=== PATIENT | female | born 1990 | race Caucasian/White ===

== ENCOUNTER 2021-11-12 06:45 | Inpatient (IN) | payer BC ==
[~2021-11-12] VITALS: Ht 165.1 cm; Wt 85.3 kg
[2021-11-12] MEDS ORDERED: ONDANSETRON HCL 4 MG/2 ML VIAL IVP PRN (08:00)
[2021-11-12] MEDS: NALBUPHINE HCL 10 MG/ML AMP IVP PRN ×3 (08:31→18:17)
[2021-11-12] MEDS: LR 1,000 ML IV SCH (08:32)
[2021-11-12] MEDS ORDERED: TERBUTALINE SULFATE 1 MG/ML VIAL SUBCUT ONE (10:45)
[2021-11-12] MEDS ORDERED: OXYTOCIN/0.9 % SODIUM CHLORIDE 1,000 ML IV SCH ×2 (10:45→23:30)
[2021-11-12] MEDS ORDERED: FENT2mCg/mL-ROPIVA0.2%/NS EPID 200 ML EP SCH (11:30)
[2021-11-12] MEDS ORDERED: fentaNYL CITRATE/PF 100 MCG/2 ML AMP ONE (12:55)
[2021-11-12] MEDS ORDERED: ROPIVACAINE HCL/PF 0.2% 200 ML ONE (12:55)
[2021-11-12 13:33] LABS: BASOPHILS # (AUTO) 0.1 K/uL (0.0-0.2); BASOPHILS % (AUTO) 0.8 % (0.0-2.0); EOSINOPHILS % (AUTO) 0.4 % (0.0-4.0); HEMATOCRIT 34.4 % (36-48); HEMOGLOBIN 11.4 g/dL (12.0-16.0); LYMPHOCYTES # (AUTO) 1.3 K/uL (1.0-5.5); LYMPHOCYTES % (AUTO) 14.2 % (20.5-51.5); MEAN CORPUSCULAR HEMOGLOBIN 29 pg (27-31); MEAN CORPUSCULAR HGB CONC 33 % (32-36); MEAN CORPUSCULAR VOLUME 87 fL (79.0-98.0); MONOCYTES # (AUTO) 0.6 K/uL (0.0-1.0); MONOCYTES % (AUTO) 6.5 % (1.7-9.3); NEUTROPHILS # (AUTO) 7.3 K/uL (1.8-7.7); NEUTROPHILS % (AUTO) 78.1 % (40.0-70.0); PLATELET COUNT (AUTO) 151 K/uL (130-430); RED BLOOD CELL COUNT(AUTO) 3.97 MIL/uL (4.2-6.2); RED CELL DISTRIBUTION WIDTH 14.9 % (9.0-15.0); WHITE BLOOD COUNT (AUTO) 9.3 K/uL (4.8-10.8)
[2021-11-12] MEDS ORDERED: LIGHT MINERAL OIL 10 ML VIAL MC ONE (21:13)
[2021-11-12] MEDS ORDERED: LIDOCAINE PF 1% 30ML(POUR BTL) INJ ONE (21:13)
[2021-11-12] MEDS ORDERED: NALOXONE HCL 0.4 MG/ML AMP (NARCAN) ONE (21:13)
[2021-11-12] MEDS ORDERED: DERMOPLAST SPRAY TP PRN (23:30)
[2021-11-12] MEDS ORDERED: MEASLES,MUMPS&RUBELLA VACC/PF 12500 UNIT/0.5 ML VIAL SUBQ PRN (23:30)
[2021-11-12] MEDS ORDERED: TEMAZEPAM 15 MG CAPSULE PO PRN (23:30)
[2021-11-12] MEDS ORDERED: DIPH-TET-PERTUS Vaccine 0.5 ML VIAL (ADACEL) I.M. PRN (23:30)
[2021-11-12] MEDS ORDERED: HYDROCORTISONE 0.5% CREAM 28.4 GM CREAM.GM. TP PRN (23:30)
[2021-11-12] MEDS ORDERED: OXYTOCIN/0.9 % SODIUM CHLORIDE 1,000 ML IV ONE (23:30)
[2021-11-12] MEDS ORDERED: LANOLIN 7 GM OINT. TP PRN (23:30)
[2021-11-12] MEDS ORDERED: RHO(D) IMMUNE GLOBULIN/MALTOSE 1500 UNITS/1.3 ML (WINHRO) IM PRN (23:30)
[2021-11-12] MEDS ORDERED: WITCH HAZEL LEAF 1 MED.PAD MED.PAD TP PRN (23:30)
[2021-11-12] MEDS ORDERED: ANUSOL 1 EA SUPP.RECT (PREPARATION H) RC PRN (23:30)
[2021-11-13] MEDS ORDERED: LIDOCAINE PF 1% 30ML(POUR BTL) INJ ONE (00:09)
[2021-11-13] MEDS ORDERED: NALOXONE HCL 0.4 MG/ML AMP (NARCAN) ONE (00:09)
[2021-11-13] MEDS: IBUPROFEN 600 MG TABLET PO SCH ×4 (00:21→18:08)
[2021-11-13] MEDS ORDERED: OXYCODONE/ACETAMINOPHEN 5-325 TABLET PO PRN ×2 (00:45)
[2021-11-13] MEDS ORDERED: IBUPROFEN 800 MG TABLET PO PRN (00:45)
[2021-11-13] MEDS: LR 1,000 ML IV SCH (02:42)
[2021-11-13 06:34] LABS: HEMATOCRIT 34.2 % (36-48); HEMOGLOBIN 11.3 g/dL (12.0-16.0)
[2021-11-13] MEDS: DOCUSATE SODIUM 100 MG CAPSULE PO SCH (09:09)
[2021-11-13] MEDS ORDERED: SENNOSIDES/DOCUSATE SODIUM 1 TAB TABLET(SENOKOT-S) PO SCH (21:00)
[2021-11-14] MEDS: IBUPROFEN 600 MG TABLET PO SCH ×4 (00:32→17:41)
[2021-11-14] MEDS: DOCUSATE SODIUM 100 MG CAPSULE PO SCH (09:12)
[2021-11-16 18:07] LABS: FTA-Ab (T PALLIDUM) Non Reactive (Non Reactive)
== END 2021-11-14 23:06 | disposition home or self-care (01) | DRG 807 ==
LOC: SPU 06:45
PROVIDERS: ADMIT Obstetrics & Gynecology; ATTEND Obstetrics & Gynecology
PROC: 10D07Z6 Extraction of Products of Conception, Vacuum, Via Natural or Artificial Opening (ICD-10-PCS; principal; 2021-11-12)
PROC: 0KQM0ZZ Repair Perineum Muscle, Open Approach (ICD-10-PCS; 2021-11-12)
PROC: 3E0R3BZ Introduction of Anesthetic Agent into Spinal Canal, Percutaneous Approach (ICD-10-PCS; 2021-11-12)
PROC: 00HU33Z Insertion of Infusion Device into Spinal Canal, Percutaneous Approach (ICD-10-PCS; 2021-11-12)
DX: O70.1 Second degree perineal laceration during delivery (principal); Z37.0 Single live birth; Z3A.39 39 weeks gestation of pregnancy
CPT/HCPCS: 36415; 85018; 85025; 86592; 86780; 86886; 86900; 86901; 87536; J2001; J2300; J2310; J2590; J3010